=== PATIENT | female | born 1975 | race Caucasian/White ===

== ENCOUNTER 2016-11-27 09:23 | Emergency (ER) | payer OTHER ==
[2016-11-27] MEDS ORDERED: NS 0.9% 1000 ML* 1,000 ML IV ONE (09:28)
--- NOTE | 2016-11-27 10:02 | RAD ---
INDICATION: Abdominal pain evaluate for obstruction or constipation. COMPARISON: There are no prior studies available for comparison. TECHNIQUE: Supine and upright views of the abdomen were obtained. FINDINGS: The small bowel and colon appear nondistended. No free intraperitoneal air is seen. There is a moderate to large amount of retained stool present throughout the colon. There are several surgical clips in the right upper quadrant most consistent with a prior cholecystectomy. IMPRESSION: 1. NO EVIDENCE FOR OBSTRUCTION. 2. MODERATE TO LARGE AMOUNT RETAINED STOOL.
--- NOTE | 2016-11-27 10:13 | ED ---
Abdominal Pain/Female - HPI Summary HPI Summary: 41 female presents to ED with complaints of left sided abdominal pain and constipation that have been ongoing for the past month. Patient states she has not had a bowel movement for about 1 month. States she had a very small "size of m&M" bowel movement this morning. Admits to passing gas. Admits to previous vomiting and nausea 2 weeks ago, however has not vomited recently. Denies fever/ chills. Tried taking 3 days of laxatives last week without relief. Loss of appetite. Has not taken anything for pain. States pain has been constant and is a dull ache that is worse with palpation. States she feels a lump on left side. Denies blood in stool, fever/chills, trouble breathing, urinary or genitalia symptoms. Denies any other complaints at this time. Has not happened to her in the past. No PMHx other than restless leg syndrome and tremors. Had gallbladder removed and a tubal ligation in the past. Patient just ended her menstrual cycle. - History of Current Complaint Chief Complaint: EDAbdPain Stated Complaint: ABD PAIN Time Seen by Provider: 11/27/16 09:29 Hx Obtained From: Patient ?: No Onset/Duration: Sudden Onset, Lasting Weeks, Still Present, Worse Since Timing: Constant Severity Initially: Mild Severity Currently: Moderate Pain Intensity: 8 Pain Scale Used: 0-10 Numeric Location: Diffuse, Discrete At: LUQ, Discrete At: LLQ Radiates: Yes Radiates to: Flank - left Aggravating Factor(s): Nothing Alleviating Factor(s): Nothing Associated Signs and Symptoms: Positive: Constipation, Decreased Appetite, Nausea, Vomiting - resolved. Negative: Fever, Blood in Stool, Urinary Symptoms , Vaginal Bleeding, Vaginal Discharge Allergies/Adverse Reactions: Allergies Allergy/AdvReac Type Severity Reaction Status Date / Time Cephalexin [From Keflex] Allergy Anaphylatic Verified 11/27/16 10:32 Shock PMH/Surg Hx/FS Hx/Imm Hx Cardiovascular History: Denies: Hx Hypertension Respiratory History: Denies: Hx Asthma - Surgical History Surgery Procedure, Year, and Place: tubal ligation, cholecystectomy - Immunization History Immunizations Up to Date: Yes Infectious Disease History: No Infectious Disease History: Denies: Traveled Outside the [place] in Last 30 Days - Family History Known Family History: Positive: None - Social History Alcohol Use: None Substance Use Type: Reports: None Smoking Status (MU): Unknown if Ever Smoked Review of Systems Constitutional: Negative Cardiovascular: Negative Respiratory: Negative Positive: Abdominal Pain, Vomiting, Nausea Genitourinary: Negative Musculoskeletal: Negative All Other Systems Reviewed And Are Negative: Yes Physical Exam Triage Information Reviewed: Yes Vital Signs On Initial Exam: Initial Vitals Temp Pulse Resp BP Pulse Ox 97.6 F 95 20 107/65 99 11/27/16 09:25 11/27/16 09:25 11/27/16 09:25 11/27/16 09:25 11/27/16 09:25 Vital Signs Reviewed: Yes Appearance: Positive: Well-Appearing, No Pain Distress, Well-Nourished Skin: Positive: Warm, Skin Color Reflects Adequate Perfusion, Dry. Negative: Cold, Numb, Cyanosis @, Jaundiced, Pale, Erythema @ Head/Face: Positive: Normal Head/Face Inspection Eyes: Positive: Conjunctiva Clear ENT: Positive: Hearing grossly normal, Pharynx normal, TMs normal Neck: Positive: Supple, Nontender Respiratory/Lung Sounds: Positive: Clear to Auscultation, Breath Sounds Present. Negative: Rales, Rhonchi, Wheezes Cardiovascular: Positive: Normal, RRR, Pulses are Symmetrical in both Upper and Lower Extremities. Negative: Murmur, Rub Abdomen Description: Positive: No Organomegaly, Soft, CVA Tenderness (L), Distended, Guarding, Other: - tender on palpation, mainly left sided upper and lower quadrants. no "lump" felt as patient stated. was firm to touch. Negative : Bruit, CVA Tenderness (R), McBurney's Point Tenderness, Peritoneal Signs, Pulsatile Mass Bowel Sounds: Positive: Present, Hypoactive Musculoskeletal: Positive: Normal, Strength/ROM Intact Neurological: Positive: Normal, Sensory/Motor Intact, Alert, Oriented to Person Place, Time, Normal Gait Psychiatric: Positive: Normal Diagnostics - Vital Signs Vital Signs Temp Pulse Resp BP Pulse Ox 11/27/16 09:25 97.6 F 95 20 107/65 99 - Laboratory Result Diagrams: 11/27/16 10:20 11/27/16 10:20 Lab Statement: Any lab studies that have been ordered have been reviewed, and results considered in the medical decision making process. - Radiology abd Xray Interpretation: Positive (See Comments) - 1. NO EVIDENCE FOR OBSTRUCTION. 2. MODERATE TO LARGE AMOUNT RETAINED STOOL. Radiology Interpretation Completed By: Radiologist Re-Evaluation - Re-Evaluation First Eval Re-Evaluation Time: 11:00 Change: Improved - feeling better after toradol, laying comfortably in stretcher Abdominal Pain Fem Course/Dx - Course Course Of Treatment: labs obtained and unremarkable. xray obtained showing moderate to large amount retained stool. no evidence for obstruction. given toradol and fluids, had some relief. appears that constipation is causing her left sided abdominal pain, will treat with laxatives. offered fleet enema however patient refused. Unmarkable labs besides some slight anemia, patient just ended menstrual cycle, recommened iron rich foods. No concern for other emergent etiology at this time. Follow up with PCP. Return if worsening signs or symptoms. Patient agrees and understands plan, wanted to finish laxative medication at home. High fiber diet was suggested. Aware that her symptoms may worsen and not relieve themselves, she may need to return or seek additional medical attention. - Diagnoses Differential Diagnosis: Positive: Appendicitis, Bowel Obstruction, Constipation , Diverticulitis, Pancreatitis, Urinary Tract Infection Provider Diagnoses: Constipation, Anemia - Provider Notifications Discussed Care Of Patient With: Dr Ochoa Discharge - Discharge Plan Condition: Stable Disposition: HOME Prescriptions: Lactulose* 30 ml PO DAILY #1 bottle Magnesium CITRATE* [Citrate of Magnesia*] 300 ml PO ONCE #1 btl Polyethylene Glycol 3350* [Miralax*] 17 gm PO DAILY #7 packet Patient Education Materials: Constipation (ED), High Fiber Diet (ED) Referrals: [facility]FERR[facility] [Outside] No Primary Care Phys,NOPCP [Primary Care Provider] - Additional Instructions: Take prescribed medication as directed to help relieve constipation for the next 5-7 days. If symptoms worsen or do not improve please seek medical attention as you may need further evaluation and treatment. Please be sure to stay well hydrated to avoid dehydration. Follow up with PCP. Return immediately if no relief, or new/worsening symptoms develop.
[2016-11-27] MEDS ORDERED: Ketorolac INJ* 30 MG/ML 1 ML VIAL IV PUSH ONE (10:16)
[2016-11-27 10:36] LABS: Hematocrit 32 % (35-47); Hemoglobin 10.2 g/dl (12.0-16.0); Mean Corpuscular HGB Conc 33 g/dl (31-36); Mean Corpuscular Hemoglobin 28 pg (27-31); Mean Corpuscular Volume 87 fL (80-97); Mean Platelet Volume 7 um3 (7.4-10.4); Red Blood Count 3.64 10^6/ul (4.0-5.4); Red Cell Distribution Width 18 % (10.5-15); White Blood Count 6.6 10^3/ul (3.5-10.8)
[2016-11-27 10:54] LABS: ALT 10 U/L (7-52); AST 13 U/L (13-39); Albumin 3.9 g/dL (3.2-5.2); Alkaline Phosphatase 63 U/L (34-104); Anion Gap 4 mmol/L (2-11); BUN/Creatinine Ratio 21.5 (8-20); Blood Urea Nitrogen 17 mg/dL (6-24); C Reactive Protein < 1.00 mg/L (< 5.00); CO2 Carbon Dioxide 27 mmol/L (22-32); Chloride 105 mmol/L (101-111); EGFR African American 102.6 (>60); EGFR Non-African American 79.8 (>60); Glucose 96 mg/dL (70-100); Lipase 36 U/L (11.0-82.0); Potassium 4.1 mmol/L (3.5-5.0); Sodium 136 mmol/L (133-145); Total Protein 6.9 g/dL (6.4-8.9)
[2016-11-27] MEDS ORDERED: Magnesium CITRATE* 300 ML BTL PO ONE (11:50)
[2016-11-27] MEDS ORDERED: Polyethylene Glycol 3350* 17 GM PACKET PO PRN (11:52)
[2016-11-27] MEDS ORDERED: Lidocaine 2% JELLY* 10 ML JELLY TOPICAL ONE (11:57)
[2016-11-27] MEDS ORDERED: Lidocaine 2% JELLY* 6 ML JELLY TOPICAL ONE (12:06)
== END 2016-11-27 12:20 | disposition home or self-care (01) ==
LOC: ED 09:23 → MERGE 09:23 → ED 12:20
DX: K59.00 Constipation, unspecified (principal); D64.9 Anemia, unspecified; R10.9 Unspecified abdominal pain; R11.2 Nausea with vomiting, unspecified
CPT/HCPCS: 36415; 74020; 80053; 83605; 83690; 84702; 85025; 86140; 96361; 96374; 99282; A9270-GY; J1885

== ENCOUNTER 2020-11-27 01:14 | Inpatient (IN) ==
[2020-11-27] MEDS ORDERED: Charcoal ACTIVATED 25 GM/120 ML BTL PO ONE (01:41)
[2020-11-27 02:04] LABS: ABS Basophils 0.1 10^3/ul (0-0.2); ABS Eosinophils 0.7 10^3/ul (0-0.6); ABS Monocytes 0.7 10^3/ul (0-0.8); ABS Neutrophils 6.9 10^3/ul (1.5-7.7); Eosinophil % 5.4 %; Hematocrit 34 % (35-47); Hemoglobin 11.3 g/dL (12.0-16.0); Lymphocyte % 32.6 %; Mean Corpuscular HGB Conc 33 g/dL (31-36); Mean Corpuscular Hemoglobin 29 pg (27-31); Mean Corpuscular Volume 86 fL (80-97); Mean Platelet Volume 6.7 fL (7.4-10.4); Platelet Count 490 10^3/uL (150-450); Red Blood Count 3.95 10^6 /uL (3.70-4.87); Red Cell Distribution Width 17 % (10-15); White Blood Count 12.4 10^3/uL (3.5-10.8)
[2020-11-27] MEDS ORDERED: Ondansetron 4 mg VIAL 2 MG/ML 2 ml VIAL IV ONE (02:08)
[2020-11-27 02:17] LABS: Urine Appearance Cloudy; Urine Bilirubin Negative (Negative); Urine Blood 1+ (Negative); Urine Color Yellow; Urine Glucose Negative (Negative); Urine Ketones Negative (Negative); Urine Nitrite Positive (Negative); Urine Protein Negative (Negative); Urine Specific Gravity 1.026 (1.002-1.030); Urine Urobilinogen Negative (Negative)
[2020-11-27 02:19] LABS: ALT 14 U/L (7-52); AST 18 U/L (13-39); Albumin 4.3 g/dL (3.2-5.2); Albumin/Globulin Ratio 1.1 (1-3); Alkaline Phosphatase 96 U/L (35-149); Anion Gap 8 mmol/L (2-11); Blood Urea Nitrogen 14 mg/dL (6-24); CO2 Carbon Dioxide 25 mmol/L (22-32); Calcium 9.7 mg/dL (8.6-10.3); Chloride 105 mmol/L (101-111); Globulin 3.9 g/dL (2-4); Glucose 98 mg/dL (70-100); Potassium 3.9 mmol/L (3.5-5.0); Sodium 138 mmol/L (135-145); Total Protein 8.2 g/dL (6.4-8.9)
[2020-11-27 02:27] LABS: HCG Pregnancy < 0.60 mIU/mL
[2020-11-27 02:41] LABS: Urine Bacteria Absent (Absent); Urine Red Blood Cell Trace(0-2/hpf) (Absent); Urine Squamous Epithelial Cell Present (Absent); Urine White Blood Cell Trace(0-5/hpf) (Absent)
[2020-11-27 02:56] LABS: Urine Benzodiazepine Screen None Detected (None Detect); Urine Cannabinoids Screen Presumptive Positive (None Detect); Urine Opiates Screen None Detected (None Detect)
[2020-11-27 03:03] LABS: Alcohol, S < 13 mg/dL (<13); Salicylate < 2.50 mg/dL (<30)
[2020-11-27 03:24] LABS: Acetaminophen 58 mcg/mL
[2020-11-27] MEDS ORDERED: Al Hydrox/Mg Hydrox/Simet LIQ 30 ML UDC PO PRN (11:18)
[2020-11-27 11:59] LABS: Rapid COVID-19 Molecular Undetected (Undetected)
[2020-11-27] MEDS ORDERED: Diphenoxylat/Atrop 2.5-0.025mg TAB PO PRN (15:24)
[2020-11-27] MEDS: Opium Tincture 6 MG/0.6 ML ORAL.LIQ SYRINGE PO SCH (21:15)
[2020-11-27] MEDS: Colestipol 1 gm TAB (NF) PO SCH (21:27)
[2020-11-27] MEDS ORDERED: diPHENhydraMINE 25 mg TAB ONE (23:04)
[2020-11-28] MEDS ORDERED: Vitamin THERAPEUTIC TAB PO SCH (09:00)
[2020-11-28] MEDS: Opium Tincture 6 MG/0.6 ML ORAL.LIQ SYRINGE PO SCH (12:12)
[2020-11-28] MEDS: Colestipol 1 gm TAB (NF) PO SCH (12:12)
[2020-11-28 12:39] VITALS: BP 108/74
== END 2020-11-28 17:25 | disposition home or self-care (01) | DRG 755 ==
LOC: ED 01:14 → BSU 14:27
PROVIDERS: ADMIT Psychiatry & Neurology Psychiatry; ATTEND Psychiatry & Neurology Psychiatry